=== PATIENT | male | born 1995 | race Caucasian/White ===

== ENCOUNTER 2021-04-12 10:15 | Emergency (ER) | payer BC ==
[~2021-04-12] VITALS: Ht 177.8 cm; Wt 90.0 kg
[~2021-04-12 10:15] MED LIST: IBUP-1984 PO; NO HOME MEDS
[2021-04-12 10:27] VITALS: BP 143/94
[2021-04-12 12:18] LABS: CLARITY,URINE SLIGHTLY CLOUDY (Clear); COLOR,URINE YELLOW (Yellow); GLUCOSE, URINE NEGATIVE (Neg); KETONES,URINE NEGATIVE (Neg); LEUKOCYTE ESTERASE ,URINE MODERATE (Neg); NITRITES, URINE NEGATIVE (Neg); OCCULT BLOOD,URINE TRACE-INTACT (Neg); PROTEIN,URINE NEGATIVE (Neg); UROBILINOGEN,URINE 0.2 E.U/dL (0.2-1.0)
[2021-04-12 12:23] LABS: UA COLLECTION TYPE CLN CATCH MIDSTREAM
[2021-04-12 12:32] LABS: BACTERIA,URINE NONE SEEN /HPF (Neg); MUCUS STRANDS NONE SEEN /LPF (Neg); RBC,URINE NONE SEEN /HPF (0-2); SQUAMOUS EPITHELIAL CELL,UR FEW /LPF (FEW); WBC CLUMPS,URINE FEW /HPF (NEGATIVE); WBC,URINE 0-4 /HPF (0-4)
[2021-04-12] MEDS ORDERED: CefTRIAXone 1000mg IM Kit (w/lidocaine diluent) IM STA (12:40)
[2021-04-12] MEDS ORDERED: DOXY100C2 PO (12:43)
== END 2021-04-12 12:57 | disposition home or self-care (01) ==
LOC: ER 10:15
DX: Z11.3 Encounter for screening for infections with a predominantly sexual mode of transmission (principal); N34.2 Other urethritis; F17.200 Nicotine dependence, unspecified, uncomplicated; Z72.89 Other problems related to lifestyle; Z79.2 Long term (current) use of antibiotics; Z79.899 Other long term (current) drug therapy
CPT/HCPCS: 36415; 81001; 87088; 87491; 87591; 96372; 99283; J0696; 87077; 87185

== ENCOUNTER 2022-03-19 12:08 | Emergency (ER) | payer BC, MEDICAID ==
[~2022-03-19] VITALS: Ht 180.3 cm; Wt 95.5 kg
[2022-03-19 12:19] VITALS: BP 142/97
[2022-03-19 13:25] LABS: CLARITY,URINE CLEAR (Clear); COLOR,URINE YELLOW (Yellow); GLUCOSE, URINE NEGATIVE (Neg); KETONES,URINE NEGATIVE (Neg); LEUKOCYTE ESTERASE ,URINE TRACE (Neg); NITRITES, URINE NEGATIVE (Neg); OCCULT BLOOD,URINE TRACE-INTACT (Neg); PROTEIN,URINE NEGATIVE (Neg); UROBILINOGEN,URINE 0.2 E.U/dL (0.2-1.0)
[2022-03-19 13:26] LABS: UA COLLECTION TYPE NON-SPECIFIED
[2022-03-19 13:32] LABS: SQUAMOUS EPITHELIAL CELL,UR FEW /LPF (FEW)
[2022-03-19 13:33] LABS: BACTERIA,URINE FEW /HPF (Neg); RBC,URINE 0-2 /HPF (0-2); WBC,URINE 0-4 /HPF (0-4)
== END 2022-03-19 15:33 | disposition left against medical advice (07) ==
LOC: ER 12:09
DX: R36.9 Urethral discharge, unspecified (principal); Z53.21 Procedure and treatment not carried out due to patient leaving prior to being seen by health care provider
CPT/HCPCS: 81001; 87088